=== PATIENT | male | born 1965 | race Caucasian/White ===

== ENCOUNTER 2016-07-18 05:19 | Emergency (ER) | payer BC ==
[2016-07-18 05:32] VITALS: BP 157/81; BMI 26.4
[2016-07-18] MEDS ORDERED: DECADRON JET NEB NEB ONE (06:11)
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
[2016-07-18] MEDS ORDERED: DUONEB 0.5 MG/3 MG NEB SCH (09:00)
== END 2016-07-18 07:27 | disposition home or self-care (01) ==
LOC: ER 05:19
DX: S42.031A Displaced fracture of lateral end of right clavicle, initial encounter for closed fracture (principal); S22.41XA Multiple fractures of ribs, right side, initial encounter for closed fracture; Y33.XXXA Other specified events, undetermined intent, initial encounter; Y92.9 Unspecified place or not applicable
CPT/HCPCS: 71111; 73630; 99282

== ENCOUNTER → 2016-07-21 | Outpatient (CLI) | payer BC ==
[2016-07-18 05:32] VITALS: BP 157/81
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
[2016-07-21 12:46] LABS: ALANINE AMINOTRANSFERASE 54 Units/L (12-78); ALBUMIN 3.6 g/dL (3.4-5.0); ALKALINE PHOSPHATASE 81 Units/L (46-116); ASPARTATE AMINO TRANSFERASE 39 Units/L (15-37); BLOOD UREA NITROGEN 10 mg/dL (7-18); CALCIUM 8.9 mg/dL (8.5-10.1); CARBON DIOXIDE 30.6 mmol/L (21-32); CHLORIDE 103 mmol/L (98-107); CREATININE 1.04 mg/dL (0.70-1.30); GLUCOSE 92 mg/dL (65-99); SODIUM 140 mmol/L (136-145); TOTAL PROTEIN 7.4 g/dL (6.4-8.2); eGFR BLACK RACES > 60 (>60); eGFR NON BLACK RACES > 60 (>60)
[2016-07-21 12:53] LABS: BASOPHILS # (AUTO) 0.1 X10^3/uL (0.0-0.1); BASOPHILS % (AUTO) 0.7 % (0.2-1.0); EOSINOPHILS # (AUTO) 0.1 x10^3/uL (0.0-0.2); EOSINOPHILS % (AUTO) 1.2 % (0.9-2.9); HEMATOCRIT 42.2 % (42.0-54.0); HEMOGLOBIN 14.6 g/dL (13.5-18.0); LYMPHOCYTES # (AUTO) 1.6 X10^3/uL (1.3-2.9); LYMPHOCYTES % (AUTO) 19.7 % (21.0-51.0); MEAN CORPUSCULAR HEMOGLOBIN 33.9 pg (27.0-34.0); MEAN CORPUSCULAR HGB CONC 34.6 g/dL (33.0-35.0); MEAN PLATELET VOLUME 8.6 fL (7.4-11.0); MONOCYTES % (AUTO) 11.8 % (0.0-13.0); NEUTROPHILS # (AUTO) 5.4 x10^3/uL (2.2-4.8); NEUTROPHILS % (AUTO) 66.6 % (42.0-75.0); PLATELET COUNT 243 X10^3/uL (150.0-450.0); RED BLOOD COUNT 4.31 X10^6/uL (4.7-6.0); RED CELL DISTRIBUTION WIDTH 13.1 % (11.6-16.5); WHITE BLOOD COUNT 8.1 X10^3/uL (3.6-10.0)
[2016-07-21 13:04] LABS: BILIRUBIN,URINE NEGATIVE (NEGATIVE); BLOOD/HEMOGLOBIN,URINE NEGATIVE (NEGATIVE); GLUCOSE, URINE NEGATIVE (NEGATIVE); KETONES,URINE NEGATIVE (NEGATIVE); LEUKOCYTE ESTERASE ,URINE NEGATIVE (NEGATIVE); NITRITES,URINE NEGATIVE (NEGATIVE); PROTEIN,URINE NEGATIVE (NEGATIVE); UROBILINOGEN,URINE NORMAL (NORMAL)
[2016-07-21 13:21] LABS: APPEARANCE,URINE CLEAR (CLEAR); BACTERIA,URINE NEGATIVE /HPF (NEGATIVE); COLOR,URINE YELLOW (YELLOW); RBC,URINE NONE SEEN /HPF (NEGATIVE); SQUAMOUS EPITHELIAL CELL,UR RARE /HPF (NEGATIVE)
[2016-07-21 13:22] LABS: MUCUS,URINE RARE /HPF (NEGATIVE)
== END ==
LOC: LAB 11:09
PROVIDERS: ATTEND Specialist
DX: Z01.818 Encounter for other preprocedural examination (principal); Z01.810 Encounter for preprocedural cardiovascular examination; Z01.811 Encounter for preprocedural respiratory examination; Z79.899 Other long term (current) drug therapy; Z11.8 Encounter for screening for other infectious and parasitic diseases; B95.7 Other staphylococcus as the cause of diseases classified elsewhere; S42.021A Displaced fracture of shaft of right clavicle, initial encounter for closed fracture; X58.XXXA Exposure to other specified factors, initial encounter
CPT/HCPCS: 36415; 71020; 80053; 81001; 85025; 87641; 93005; 93010

== ENCOUNTER 2016-07-25 07:24 | Day surgery (SDC) | payer BC ==
[~2016-07-25 07:24] MED LIST: ANCEF VIAL 1 GM ONE; D5 LR 1000 ML 1,000 ML IV ONE; NS 50 ML IV + SPIKE MINIBAG* 50 ML IV ONE
[2016-07-25] MEDS ORDERED: MARCAINE 0.25% WITH EPI IJ ONE (08:06)
[2016-07-25] MEDS ORDERED: FENTANYL INJ 250 mcg ONE (08:34)
[2016-07-25] MEDS ORDERED: NS IRRIGATION 1000 ML 1,000 ML with BACITRACIN VIAL 50,000 UNT IR ONE ×2 (09:21)
[2016-07-25] MEDS ORDERED: DILAUDID INJ IVP PRN (10:45)
[2016-07-25] MEDS ORDERED: ZOFRAN INJ 4 MG VIAL IVP PRN (10:45)
[2016-07-25] MEDS ORDERED: PHENERGAN INJ 25 MG IVP PRN (10:45)
[2016-07-25] MEDS ORDERED: REGLAN INJ 10 MG VIAL IVP PRN (10:45)
[2016-07-25] MEDS ORDERED: BENADRYL INJ 50 MG VIAL IVP PRN (10:45)
[2016-07-25] MEDS ORDERED: DILAUDID INJ IVP ONE (10:54)
[2016-07-25] MEDS ORDERED: NAROPIN 0.75% ONE (10:55)
[2016-07-25] MEDS ORDERED: XYLOCAINE 2 % (PLAIN) ONE ×2 (10:56→15:18)
[2016-07-25 13:23] VITALS: BP 129/79
[2016-07-25] MEDS ORDERED: ROBINUL ONE (15:18)
[2016-07-25] MEDS ORDERED: REGLAN INJ 10 MG VIAL ONE (15:18)
[2016-07-25] MEDS ORDERED: VERSED ONE (15:18)
[2016-07-25] MEDS ORDERED: SUPRANE IN ONE (15:18)
[2016-07-25] MEDS ORDERED: QUELICIN (OR ANECTINE) ONE (15:18)
[2016-07-25] MEDS ORDERED: NEOSTIGMINE INJ ONE (15:18)
[2016-07-25] MEDS ORDERED: NORCURON INJ 10 MG VIAL ONE (15:18)
[2016-07-25] MEDS ORDERED: DIPRIVAN VIAL ONE (15:18)
[2016-07-25] MEDS ORDERED: ZOFRAN INJ 4 MG VIAL ONE (15:18)
== END 2016-07-25 12:50 | disposition home or self-care (01) | DRG 517 ==
LOC: SURG1 07:24
PROVIDERS: ATTEND Specialist
PROC: 0PS904Z Reposition Right Clavicle with Internal Fixation Device, Open Approach (ICD-10-PCS; principal; 2016-07-25 08:30)
DX: S42.021A Displaced fracture of shaft of right clavicle, initial encounter for closed fracture (principal); X58.XXXA Exposure to other specified factors, initial encounter
CPT/HCPCS: 64418; A4216; A4222; S0020; J0330; J0690; J1170; J2001; J2250; J2405; J2710; J2765; J3010; J3490; J7120